=== PATIENT | female | born 1975 | race Caucasian/White ===

== ENCOUNTER 2020-03-15 12:48 | Emergency (ER) | payer SELFPAY ==
[~2020-03-15] VITALS: Ht 157.5 cm; Wt 66.7 kg
[2020-03-15] MEDS ORDERED: LISINOPRIL20 MG PO (14:53)
--- NOTE | 2020-03-16 15:19 | EKG ---
[facility] [address] [facility] [facility] [place], [place] [address] Signed Normal sinus rhythm Prolonged QT Abnormal ECG No previous ECGs available Confirmed by TANIA HANNAH DO ([id number]) on 03/16/2020 10:58:49 AM Electronically Signed By: TANIA HANNAH DO 03/16/20 1519 PATIENT NAME: FRANCIA ROSALES Electrocardiogram DATE OF : 71 PHYSICIAN: TANIA HANNAH DO REPORT #: [id number] REPORT IS CONFIDENTIAL AND NOT TO BE RELEASED WITHOUT AUTHORIZATION
== END 2020-03-15 15:36 | disposition home or self-care (01) ==
LOC: ED 12:48
DX: I10 Essential (primary) hypertension (principal); F17.200 Nicotine dependence, unspecified, uncomplicated; Z88.2 Allergy status to sulfonamides
CPT/HCPCS: 93005; 93010; 96374; 96375; 99284-25; J2060; J2405